=== PATIENT | male | born 1965 | race Caucasian/White ===

== ENCOUNTER → 2017-11-24 | Outpatient (CLI) | payer OTHER ==
[2017-11-24 16:41] LABS: ALBUMIN 4.3 g/dL (3.4-5.0); ALKALINE PHOSPHATASE 69 U/L (46-116); ALT/SGPT 41 U/L (16-63); AST/SGOT 22 U/L (15-37); BILIRUBIN TOTAL 0.78 mg/dL (0.20-1.00); CALCIUM 8.9 mg/dL (8.5-10.1); CARBON DIOXIDE 28.6 mmol/L (21-32); CHLORIDE SERUM 105 mmol/L (98-107); GFR1 > 60 mL/min; GLUCOSE SERUM 90 mg/dL (74-106); HDL CHOLESTEROL 44 mg/dL (40-60); POTASSIUM SERUM 4.2 mmol/L (3.5-5.1); SODIUM SERUM 141 mmol/L (136-145); TOTAL PROTEIN, SERUM 7.6 g/dL (6.4-8.2)
[2017-11-24 16:42] LABS: CHOLESTEROL 126 mg/dL (<200); CHOLESTEROL/HDL RATIO 2.9; TRIGLYCERIDES 216 mg/dL (<150)
== END | disposition home or self-care (01) ==
LOC: LB 15:48
DX: R79.89 Other specified abnormal findings of blood chemistry (principal); E78.5 Hyperlipidemia, unspecified

== ENCOUNTER → 2019-06-13 | Outpatient (CLI) | payer OTHER ==
[2019-06-13 08:31] LABS: BASOPHIL % 0.3 % (0-2)
[2019-06-13 08:33] LABS: PLATELET COUNT 118 x10^3mcL (130-400)
[2019-06-13 09:12] LABS: ALKALINE PHOSPHATASE 79 U/L (46-116); ALT/SGPT 35 U/L (16-63); AST/SGOT 4 U/L (15-37); BILIRUBIN TOTAL 0.78 mg/dL (0.20-1.00); CALCIUM 8.9 mg/dL (8.5-10.1); CARBON DIOXIDE 29.3 mmol/L (21-32); CHLORIDE SERUM 103 mmol/L (98-107); CREATININE SERUM 0.9 mg/dL (0.7-1.3); GFR1 > 60 mL/min; GLUCOSE SERUM 191 mg/dL (74-106); SODIUM SERUM 140 mmol/L (136-145); TOTAL PROTEIN, SERUM 7.5 g/dL (6.4-8.2)
[2019-06-13 09:34] LABS: HDL CHOLESTEROL 38 mg/dL (40-60)
[2019-06-13 09:54] LABS: CHOLESTEROL 220 mg/dL (<200); CHOLESTEROL/HDL RATIO 5.8; TRIGLYCERIDES 352 mg/dL (<150)
== END | disposition home or self-care (01) ==
LOC: LB 07:34
DX: Z00.00 Encounter for general adult medical examination without abnormal findings (principal)
CPT/HCPCS: 84153; 84439